=== PATIENT | female | born 1960 | race Caucasian/White ===

== ENCOUNTER → 2017-06-19 | Outpatient (CLI) | payer SELFPAY ==
[~2017-06-19] MED LIST: LEVO75TA5 PO
== END | disposition home or self-care (01) ==
LOC: CFH 15:30
PROVIDERS: ATTEND Orthopaedic Surgery
DX: S92.321A Displaced fracture of second metatarsal bone, right foot, initial encounter for closed fracture (principal); S92.331A Displaced fracture of third metatarsal bone, right foot, initial encounter for closed fracture; S92.341A Displaced fracture of fourth metatarsal bone, right foot, initial encounter for closed fracture; W19.XXXA Unspecified fall, initial encounter; Y93.89 Activity, other specified; Y92.89 Other specified places as the place of occurrence of the external cause; Y99.8 Other external cause status

== ENCOUNTER 2019-05-17 18:25 | Emergency (ER) | payer SELFPAY ==
[~2019-05-17] VITALS: Ht 165.1 cm; Wt 84.1 kg
[2019-05-17 18:38] VITALS: BP 102/48
--- NOTE | 2019-05-17 19:07 | NUR ---
NIL WHEN CALLED TO BE ROOMED
--- NOTE | 2019-05-17 19:18 | NUR ---
NIL WHEN CALLED TO BE ROOMED
== END 2019-05-17 19:24 | disposition left against medical advice (07) ==
LOC: ED 19:18
DX: M79.669 Pain in unspecified lower leg (principal); Z53.21 Procedure and treatment not carried out due to patient leaving prior to being seen by health care provider